=== PATIENT | male | born 1990 | race Caucasian/White ===

== ENCOUNTER 2019-12-09 14:29 | Emergency (ER) | payer SELFPAY ==
--- NOTE | 2019-12-09 15:46 | EDPHYS ---
Physician Documentation [facility] Name: Daquan Allen Age: 29 yrs Sex: Male : 1990 Arrival Date: 12/09/2019 Time: 14:38 Bed 25 Private MD: ED Physician Flex Lamb HPI: 12/09 16:02 This 29 yrs old Male presents to ER via Ambulatory with complaints of Dog kb Bite. 16:02 The patient was bitten on the right ankle and right flank, by a dog, outdoors. Onset: kb The symptoms/episode began/occurred today. Animal information: The animal was reported to appear healthy. Animal's vaccinations are up to date. Secondary to the bite the patient reports an abrasion, Associated signs and symptoms: The patient has no apparent associated signs or symptoms. Severity of symptoms: At their worst the symptoms were mild, moderate, in the emergency department the symptoms are unchanged. The patient has not experienced similar symptoms in the past. The patient has not recently seen a physician. Historical: - Allergies: 14:42 No Known Allergies; hb - Home Meds: 14:42 None [Active]; hb - PMHx: 14:42 None; hb - PSHx: 14:42 Tonsillectomy; hb - Immunization history:: Adult Immunizations up to date. - Coronavirus screen:: The patient has NOT traveled to [place], [place], or [place] in the past 14 days. Proceed with normal triage process as indicated. The patient has NOT had contact with known/suspected case of Coronavirus? Proceed with normal triage procedures. - Social history:: Smoking status: Patient denies any tobacco usage or history of. - Ebola Screening: : No symptoms or risks identified at this time. ROS: 16:02 Constitutional: Negative for fever, chills, and weight loss, Neck: Negative for injury, kb pain, and swelling, Cardiovascular: Negative for chest pain, palpitations, and edema, Respiratory: Negative for shortness of breath, cough, wheezing, and pleuritic chest pain, Abdomen/GI: Negative for abdominal pain, nausea, vomiting, diarrhea, and constipation, Back: Negative for injury and pain, MS/Extremity: Negative for injury and deformity, Neuro: Negative for headache, weakness, numbness, tingling, and seizure. 16:02 Skin: Positive for abrasion(s), puncture, of the right ankle and right flank. Exam: 16:01 Constitutional: This is a well developed, well nourished patient who is awake, alert, kb and in no acute distress. Head/Face: Normocephalic, atraumatic. Neck: Trachea midline, no thyromegaly or masses palpated, and no cervical lymphadenopathy. Supple, full range of motion without nuchal rigidity, or vertebral point tenderness. No Meningismus. Chest/axilla: Normal chest wall appearance and motion. Nontender with no deformity. No lesions are appreciated. Cardiovascular: Regular rate and rhythm with a normal S1 and S2. No gallops, murmurs, or rubs. Normal PMI, no JVD. No pulse deficits. Respiratory: Lungs have equal breath sounds bilaterally, clear to auscultation and percussion. No rales, rhonchi or wheezes noted. No increased work of breathing, no retractions or nasal flaring. Abdomen/GI: Soft, non-tender, with normal bowel sounds. No distension or tympany. No guarding or rebound. No evidence of tenderness throughout. MS/ Extremity: Pulses equal, no cyanosis. Neurovascular intact. Full, normal range of motion. Neuro: Awake and alert, GCS 15, oriented to person, place, time, and situation. Cranial nerves II-XII grossly intact. Motor strength 5/5 in all extremities. Sensory grossly intact. Cerebellar exam normal. Normal gait. 16:01 Skin: injury, bite(s), superficial, of the right flank and right ankle. Vital Signs: 14:43 BP 135 / 87; Pulse 80; Resp 16; Temp 97.2; Pulse Ox 96% on R/A; Weight 104.33 kg; hb Height 5 ft. 8 in. (172.72 cm); Pain 3/10; 14:43 Body Mass Index 34.97 (104.33 kg, 172.72 cm) hb MDM: 14:56 Patient medically screened. kb 15:44 Data reviewed: vital signs, nurses notes. Data interpreted: Pulse oximetry: on room air kb is 96 %. Interpretation: normal. Counseling: I had a detailed discussion with the patient and/or guardian regarding: the historical points, exam findings, and any diagnostic results supporting the discharge/admit diagnosis, the need for outpatient follow up, a family practitioner, to return to the emergency department if symptoms worsen or persist or if there are any questions or concerns that arise at home. 12/09 15:24 Order name: Wound Care; Complete Time: 15:46 kb Administered Medications: 16:06 Drug: Tetanus-Diphtheria Toxoid Adult 0.5 ml {Estimator And Drafter: [employer]. Exp: aj1 11/29/2020. Lot #: [id number]. } Route: IM; Site: left deltoid; 16:06 Drug: Augmentin 875 mg Route: PO; aj1 Disposition: 12/09/19 15:46 Discharged to Home. Impression: Bitten by dog. - Condition is Stable. - Discharge Instructions: Animal Bite, [id number]. - Prescriptions for Augmentin 875- 125 mg Oral Tablet - take 1 tablet by ORAL route every 12 hours for 10 days; 20 tablet. - Medication Reconciliation Form, Thank You Letter, Antibiotic Education, Prescription Opioid Use form. - Follow up: Private Physician; When: 2 - 3 days; Reason: Recheck today's complaints, Continuance of care, Re-evaluation by your physician. Follow up: Emergency Department; When: As needed; Reason: Worsening of condition. Addendum: 12/10/2019 21:15 Co-signature as Attending Physician, Flex Lamb MD I agree with the assessment and k dr plan of care. Signatures: Tory Pacheco, MELTER LOADER-C MELTER LOADER-Ckb Cally Guillen RN RN aj1 Flex Lamb MD MD [facility] Naye Conklin RN RN Adal Damon jp3 Corrections: (The following items were deleted from the chart) 12/09 16:24 15:46 12/09/2019 15:46 Discharged to Home. Impression: Bitten by dog. Condition is jp3 Stable. Forms are Medication Reconciliation Form, Thank You Letter, Antibiotic Education, Prescription Opioid Use. Follow up: Private Physician; When: 2 - 3 days; Reason: Recheck today's complaints, Continuance of care, Re-evaluation by your physician. Follow up: Emergency Department; When: As needed; Reason: Worsening of condition. kb
--- NOTE | 2019-12-09 15:46 | ER ---
Nurse's Notes [facility] Name: Daquan Allen Age: 29 yrs Sex: Male : 1990 Arrival Date: 12/09/2019 Time: 14:38 Bed 25 Private MD: Diagnosis: Bitten by dog Presentation: 12/09 14:41 Presenting complaint: Bit by dog on right flank and right ankle 2 hrs ago. + hb vaccinated, [place] [employer] incident # [id number]. Transition of care: patient was not received from another setting of care. Onset of symptoms was December 09, 2019. Risk Assessment: Do you want to hurt yourself or someone else? Patient reports no desire to harm self or others. Care prior to arrival: None. 14:41 Method Of Arrival: Ambulatory hb 14:41 Acuity: KERVIN 4 hb Historical: - Allergies: 14:42 No Known Allergies; hb - Home Meds: 14:42 None [Active]; hb - PMHx: 14:42 None; hb - PSHx: 14:42 Tonsillectomy; hb - Immunization history:: Adult Immunizations up to date. - Coronavirus screen:: The patient has NOT traveled to [place], [place], or [place] in the past 14 days. Proceed with normal triage process as indicated. The patient has NOT had contact with known/suspected case of Coronavirus? Proceed with normal triage procedures. - Social history:: Smoking status: Patient denies any tobacco usage or history of. - Ebola Screening: : No symptoms or risks identified at this time. Vital Signs: 14:43 BP 135 / 87; Pulse 80; Resp 16; Temp 97.2; Pulse Ox 96% on R/A; Weight 104.33 kg; hb Height 5 ft. 8 in. (172.72 cm); Pain 3/10; 14:43 Body Mass Index 34.97 (104.33 kg, 172.72 cm) hb ED Course: 14:38 Patient arrived in ED. hb 14:42 Triage completed. hb 14:43 Arm band placed on. hb 14:45 Cally Guillen, CINDY is Primary Nurse. aj1 14:55 Tory Pacheco FNP-C [facility]. kb 14:55 Flex Lamb MD is Attending Physician. kb 15:40 Dressings: non-adherent dressing x 1 anterior aspect of right ankle Tegaderm X 1; jp3 anterior aspect of right ankle. Dressings: non-adherent dressing x 1 posterior aspect of right lateral abdomen Tegaderm X 1; posterior aspect of right lateral abdomen. Wound care: to puncture located on posterior aspect of right lateral abdomen was cleaned with Hibiclens, debrided using Betadine scrub, Patient tolerated well. Wound care: was dressed with Neosporin. 15:46 Wound care: to abrasion, located on right lower quadrant and anterior aspect of right jp3 ankle was cleaned with Hibiclens, debrided using Betadine scrub. Administered Medications: 16:06 Drug: Tetanus-Diphtheria Toxoid Adult 0.5 ml {Junior Technical Writer: [employer]. Exp: aj1 11/29/2020. Lot #: [id number]. } Route: IM; Site: left deltoid; 16:06 Drug: Augmentin 875 mg Route: PO; aj1 Outcome: 15:46 Discharge ordered by . kb 16:24 Patient left the ED. jp3 Signatures: Tory Pacheco FNP-C FNP-Cally Manzo, RN RN aj1 Naye Conklin, RN RN Adal Damon jp3
[2019-12-09] MEDS ORDERED: TETANUS & DIPHTHERIA TOX,ADULT 0.5 ML VIAL ONE (16:03)
[2019-12-09] MEDS ORDERED: AMOX/K CLAV 875 MG TAB ONE (16:03)
[2019-12-09 16:32] VITALS: BP 135/87; TEMP 97.2; O2SAT 96
== END 2019-12-09 16:24 | disposition home or self-care (01) ==
LOC: ER 14:29
DX: S91.051A Open bite, right ankle, initial encounter (principal); S31.159A Open bite of abdominal wall, unspecified quadrant without penetration into peritoneal cavity, initial encounter; W54.0XXA Bitten by dog, initial encounter; Y93.9 Activity, unspecified; Y92.9 Unspecified place or not applicable; Z23 Encounter for immunization
CPT/HCPCS: 90471; 90714; 99284